=== PATIENT | female | born 2000 | race Caucasian/White ===

== ENCOUNTER 2020-08-11 09:49 | Outpatient (CLI) | payer OTHER, SELFPAY ==
[2020-08-11 09:59] LABS: Basophils Absolute Auto 0.04 K/mm3 (0.00-0.10); Basophils Percent Auto 0.5 % (0.0-1.0); Eosinophils Absolute Auto 0.11 K/mm3 (0.02-0.50); Eosinophils Percent Auto 1.4 % (1.0-6.0); Hematocrit 39.9 % (35.0-49.0); Hemoglobin 13.1 g/dL (12.0-15.0); Immature Granulocyte Absolute 0.04 K/mm3 (0.00-0.00); Immature Granulocyte Percent A 0.5 % (0.0-0.0); Lymphocytes Absolute Auto 1.62 K/mm3 (1.10-4.50); Lymphocytes Percent Auto 21.1 % (18.0-42.0); Mean Corpuscular HGB Conc 32.8 g/dL (32.0-36.0); Mean Corpuscular Volume 88.3 fL (78.0-102.0); Mean Platelet Volume 9.7 fl (9.2-11.8); Monocytes Absolute Auto 0.47 K/mm3 (0.10-0.90); Monocytes Percent Auto 6.1 % (2.0-11.0); Neutrophils Absolute Auto 5.4 K/mm3 (1.7-7.2); Neutrophils Percent Auto 70.4 % (50.0-70.0); Platelet Count Result 336 K/mm3 (150-420); Red Blood Count 4.52 M/mm3 (4.20-5.40); Red Cell Distribution Width 12.3 % (11.6-14.4); White Blood Count 7.7 K/mm3 (4.8-10.8)
[2020-08-11 11:15] LABS: Alanine Aminotransferase 22 U/L (14-59); Albumin Level 3.6 g/dL (3.4-5.0); Alkaline Phosphatase 72 U/L (46-116); Anion Gap 10 mmol/L (8-16); Aspartate Amino Transferase 11 U/L (15-37); Bilirubin,Total 0.1 mg/dL (0.00-1.00); Blood Urea Nitrogen 11 mg/dL (7-18); Calcium 9.1 mg/dL (8.5-10.1); Carbon Dioxide 27 mmol/L (21-32); Chloride 102 mmol/L (98-108); Estimated Glomerular Filt Rate > 60; Free T4 Free Thyroxine 0.93 ng/dL (0.76-1.46); Glucose 90 mg/dL (70-99); Osmolality Calculated 287 mOsm/kg (285-295); Potassium 4.5 mmol/L (3.5-5.1); Sodium 139 mmol/L (136-145); Thyroid Stimulating Hormone 1.05 uIU/mL (0.36-3.74); Total Protein 6.9 g/dL (6.4-8.2); Vitamin B12 283 pg/mL (193-986)
== END 2020-08-11 09:50 | disposition home or self-care (01) ==
PROVIDERS: PCP Nurse Practitioner Family; Visit Provider Nurse Practitioner Family
DX: R53.83 Other fatigue (principal); R63.5 Abnormal weight gain
CPT/HCPCS: 36415; 80053; 82607; 84439; 84443; 85025

== ENCOUNTER 2021-03-11 13:29 | Emergency (ER) | payer OTHER, SELFPAY ==
--- NOTE | ~2021-03-11 | XR_ITS ---
EXAMINATION: XR chest 2V EXAM DATE: 03/11/2021 16:07 INDICATION: Cough. TECHNIQUE: Frontal and lateral projections of the chest obtained and reviewed. Comparison is made to prior examination from 10/25/2017. FINDINGS: The lungs are clear. There are no pleural effusions. The cardiomediastinal silhouette is within normal limits. There is no pneumothorax suspected. The bones and soft tissues are unremarkab le. IMPRESSION: No acute cardiopulmonary findings. Reviewed, dictated and finalized at location A. NG ROOM HOST/HOSTESS
[2021-03-11 15:06] VITALS: BP 143/86; PULSE 81; RESP 16; TEMP 36.8; O2SAT 99
--- NOTE | 2021-03-11 15:53 | ED.GENADULT ---
HPI - General Adult General Chief complaint: Upper Respiratory Infection Stated complaint: nasal congestion,cough,sorethroat Source: patient Mode of arrival: ambulatory Limitations: no limitations History of Present Illness HPI narrative: Patient presents for evaluation of respiratory symptoms for the last 3 days. Symptoms include sore throat, nonproductive cough, shortness of breath, and diarrhea. She has had a low-grade fever with T-max 100.4. She denies any chills, nausea or vomiting. She has had COVID in the past. She also has received COVID vaccination and booster. However, one of her friends tested positive for COVID and they spent two days together this week. Related Data Home Medications Medication Instructions Recorded Confirmed norethindrone acetate 1.5 1 tablet PO DAILY 08/11/20 03/11/21 mg-ethinyl estradiol 30 mcg tablet Allergies Allergy/AdvReac Type Severity Reaction Status Date / Time No Known Allergies Allergy Verified 03/11/21 15:17 Review of Systems Review of Systems: CONSTITUTIONAL: Reports fever. Denies chills. EYES: Denies visual changes, redness, or discharge. ENT: Reports sore throat. Denies rhinorrhea, congestion, or otalgia. CARDIOVASCULAR: Denies chest pain, palpitations, or edema. RESPIRATORY: Reports nonproductive cough and SOB GASTROINTESTINAL: Reports diarrhea. Denies abdominal pain, nausea, vomiting, or diarrhea. GENITOURINARY: Denies dysuria or hematuria. SKIN: Denies rash or itching. MUSCULOSKELETAL: Reports body aches NEUROLOGIC: Denies headache, numbness, dizziness, or weakness. PSYCHIATRIC: Denies anxiety or depression. [facility] Past Medical History Medical History (Updated 03/11/21 @ 16:33 by MARY Mariscal, ) No pertinent past medical history Surgical History Surgical History Hx of tonsillectomy Family History Family History Father Hyperlipemia Grandparent Hyperlipemia Social History Social History Smoking status: Never smoker Alcohol intake: current Alcohol use details: occasionally Substance use: never Gender identity (if verbalized by the patient): Female Exam Narrative: GENERAL: Well-appearing, well-nourished, and in no acute distress. HEAD: Normocephalic, atraumatic. EYES: PERRLA and EOMI. ENT: Nares clear, no rhinorrhea or epistaxis. Mucous membranes moist. Oropharynx without tonsillar hypertrophy exudate or other lesions. Bilateral TMs pearly velasco nonbulging NECK: Supple. No adenopathy or masses. No carotid bruits or JVD CHEST: Clear to auscultation. No respiratory distress. No wheezes rales or rhonchi HEART: Regular rate and rhythm. No murmur heard. Normal peripheral pulses. ABDOMEN: Soft, nontender, nondistended, normal active bowel sounds. EXTREMITIES: Normal range of motion. No edema. SKIN: Warm, dry, no rash. NEURO: No focal deficits. Alert and oriented x3. PSYCH: Normal mood and affect. Course Course Emergency Course: This is a 21-year-old female that presented with respiratory symptoms. Strep, influenza, Covid were all negative. Chest x-ray negative. Likely acute viral syndrome. I did advise that she quarantine and repeat her Covid test in a few days. She is nontoxic-appearing. Vital signs stable. Advise follow-up outpatient for further evaluation and treatment return for worsening symptoms. Patient agreed with plan of care. Level of Care: Express Care Visit Vital Signs Vital signs: Vital Signs Temperature 36.8 C 03/11/21 15:06 Pulse Rate 81 03/11/21 15:06 Respiratory Rate 16 03/11/21 15:06 Blood Pressure 143/86 H 03/11/21 15:06 Pulse Oximetry 99 03/11/21 15:06 Temperature 36.8 C 03/11/21 15:06 Pulse Rate 81 03/11/21 15:06 Respiratory Rate 16 03/11/21 15:06 Blood Pressure 143/86 H 03/11/21
== END 2021-03-11 16:35 | disposition home or self-care (01) ==
PROVIDERS: Emergency Provider Nurse Practitioner
DX: B34.9 Viral infection, unspecified (principal); Z20.822 Contact with and (suspected) exposure to COVID-19
CPT/HCPCS: 71046; 87081; 87426; 87804; 87880; 99213; C9803; G0463

== ENCOUNTER 2021-03-13 08:24 | Outpatient (CLI) | payer OTHER, SELFPAY ==
[2021-03-13 10:59] LABS: SARS-CoV-2 RNA PCR Negative (Negative)
== END 2021-03-13 08:25 | disposition home or self-care (01) ==
LOC: CHSLAB 08:27
PROVIDERS: PCP Nurse Practitioner Family; Visit Provider Family Medicine
DX: R50.9 Fever, unspecified (principal); Z20.822 Contact with and (suspected) exposure to COVID-19
CPT/HCPCS: C9803; U0003; U0005

== ENCOUNTER 2021-05-12 10:12 | Outpatient (CLI) | payer OTHER, SELFPAY ==
[2021-05-12 16:00] LABS: SARS-CoV-2 RNA PCR Negative (Negative)
== END 2021-05-12 10:13 | disposition home or self-care (01) ==
LOC: CHSLAB 10:14
PROVIDERS: PCP Nurse Practitioner Family; Visit Provider Nurse Practitioner Family
DX: Z20.822 Contact with and (suspected) exposure to COVID-19 (principal)
CPT/HCPCS: C9803; U0003; U0005

== ENCOUNTER 2021-07-27 14:03 | Outpatient (CLI) | payer OTHER, SELFPAY ==
[2021-07-30 14:32] LABS: TB Skin Test Erythema 0 mm; TB Skin Test Induration 0 mm (0-10); TB Skin Test Interpretation Negative (Negative); TB Skin Test Site Left Arm
== END 2021-07-27 14:04 | disposition home or self-care (01) ==
LOC: CHSLAB 14:05
PROVIDERS: PCP Nurse Practitioner Family; Visit Provider Nurse Practitioner Family
DX: Z02.1 Encounter for pre-employment examination (principal)
CPT/HCPCS: 36415; 86580

== ENCOUNTER 2021-09-06 12:51 | Outpatient (CLI) | payer OTHER, SELFPAY ==
[2021-09-06 13:25] LABS: Amphetamine Screen Urine Negative (Negative); Barbiturate Screen Urine Negative (Negative); Benzodiazepines Screen Urine Negative (Negative); Cannabinoid Screen Urine Negative (Negative); Cocaine Screen Urine Negative (Negative); Methadone Screen Urine Negative (Negative); Opiate Screen Urine Negative (Negative); Phencyclidine Screen Urine Negative (Negative)
== END 2021-09-06 12:52 | disposition home or self-care (01) ==
LOC: CHSLAB 12:53
PROVIDERS: PCP Nurse Practitioner Family; Visit Provider Nurse Practitioner Family
DX: Z02.1 Encounter for pre-employment examination (principal)
CPT/HCPCS: 80307

== ENCOUNTER → 2021-10-16 10:35 | Outpatient (CLI) | payer OTHER, SELFPAY ==
--- NOTE | ~2021-10-16 | CT_ITS ---
EXAMINATION: CT sinus wo con DATE: 10/16/2021 10:47 INDICATION: Chronic sinusitis TECHNIQUE: Computed tomography (CT) of the paranasal sinuses was performed without contrast. Iterativ e reconstruction technique was employed. Exam dose: 266.74 mGy-cm total exam DLP. COMPARISON: None FINDINGS: The nasal septum is essentially midline. Interlamellar cell of right middle nasal turbinate. The nasal turbinates are moderately prominent but symmetric in size. There is mild to moderate nodular mucoperiosteal thickening along the lower portion of the maxillary sinuses. The paranasal sinuses are otherwise normally developed and aerated. The mastoid air cells are normally developed and aerated bilaterally. IMPRESSION: Intralamellar cell of right middle nasal turbinate Mild to moderate nodular mucoperiosteal thickening of the lower aspect of both maxillary sinuses; oth erwise patent paranasal sinuses, ostiomeatal units and mastoid air cells Reviewed, dictated and finalized at Location A. Reviewed, dictated and finalized at location B. IMPRESSION: Intralamellar cell of right middle nasal turbinate Mild to moderate nodular mucoperiosteal thickening of the lower aspect of both maxillary sinuses; otherwise patent paranasal sinuses, ostiomeatal units and ma stoid air cells
== END ==
PROVIDERS: PCP Nurse Practitioner Family; Visit Provider Allergy & Immunology
DX: J32.9 Chronic sinusitis, unspecified (principal)
CPT/HCPCS: 70486

== ENCOUNTER 2021-10-17 11:58 | Outpatient (CLI) | payer OTHER, SELFPAY ==
--- NOTE | 2021-10-17 12:08 | ECG_ITS ---
Measurements Intervals [place] Rate: 63 P: 17 CT: 156 QRS: 26 QRSD: 114 T: 16 QT: 430 QTc: 442 Interpretive Statements SINUS RHYTHM WITH SINUS ARRHYTHMIA INCOMPLETE RIGHT BUNDLE BRANCH BLOCK [90+ ms QRS DURATION, TERMINAL R IN V1/V2, 40+ ms S IN I/aVL/V4/V5/V6] POOR R-WAVE PROGRESSION POSSIBLE INFERIOR MYOCARDIAL INFARCTION , PROBABLY OLD [30 ms Q WAVE IN II/aVF] NO PREVIOUS ECG AVAILABLE FOR COMPARISON Electronically Signed On 10-17-2021 16:51:37 CDT by Gloria Bryant M.D.
== END 2021-10-17 11:59 | disposition home or self-care (01) ==
PROVIDERS: PCP Nurse Practitioner Family; Visit Provider Nurse Practitioner Family
DX: R00.2 Palpitations (principal)
CPT/HCPCS: 93005

== ENCOUNTER 2022-12-26 08:41 | Outpatient (CLI) | payer OTHER, SELFPAY ==
--- NOTE | 2023-01-16 07:40 | WPDHOMESLEEP ---
Sleep Study - Home Unattended Date of Study: 12/26/22 Ordering Provider: German Duarte DO Interpreting Provider: Yudith Strong MD Home Sleep Study Type: Watch PAT Height: 1.57 m Weight: 113.398 kg Body Mass Index: 45.7 Neck Circumference (inches): 16 Jackson: 10 Reason for Sleep Study Daytime hypersomnia Sleep History Patient is a 22-year-old female with history of acid reflux and recently elevated blood pressure readings who underwent a home sleep test for evaluation of daytime hypersomnia. She rarely awakens from sleep short of breath. She constantly awakens at night with heartburn, belching or coughing. She frequently snores and occasionally snores loudly enough that others complain. She constantly has trouble sleeping when she has a cold. She never suddenly wakes up gasping for breath during the night. She never has breathing problems at night. She never sweats excessively at night. She never notices her heart pounding or beating irregularly during the night. She occasionally falls asleep during the day. She never falls asleep while driving. She never experiences loss of muscle tone with strong emotion. She never has trouble at school or work because of sleepiness. She never feels paralyzed on waking or falling asleep. She occasionally experiences vivid dreams upon waking or falling asleep. She does not feel afraid of going to sleep. She occasionally has nightmares. She occasionally recalls her dreams. She occasionally has thoughts racing through her mind. She occasionally feels sad or depressed. She frequently feels anxiety or worry about things. She occasionally notices parts of her body jerk. She occasionally kicks during the night. She rarely feels crawling or aching feelings in her legs. She frequently feels leg pain at night. She occasionally grinds her teeth during sleep and never has morning jaw pain. She rarely feels bothered by pain during the day and is occasionally awakened by pain during the night. She occasionally wakes up feeling stiff in the morning. She frequently wakes up feeling sore and achy in the morning. She frequently wakes with pain in her neck, spine, or joints. Normal bedtime is between 9:30pm to 10pm on the weekdays and 11pm to 2am on the weekends, taking about 10 minutes to fall asleep. She typically gets about 8 to 10 hours of sleep per night. Her wake up time is between 3 to 5am on the weekdays and 6 to 7am on the weekends. She typically wakes up around 1 to 2 times per night, awake 10 minutes at most and she will go to the restroom, get a drink of water, and go back to bed. Habits: Never tobacco smoker. Drinks 0 to 2 caffeinated beverages per day. Social alcohol use on the weekends. No recreational substances. [facility] Past Medical History Medical History No pertinent past medical history Surgical History Surgical History Hx of tonsillectomy Family History Family History Father Hyperlipemia Grandparent Hyperlipemia Social History Social History Smoking status: Never smoker Alcohol intake: current Alcohol use details: occasionally Substance use: never Lack of Transportation: No Lack of Food: Never True Current Housing: I Have Housing Concerned About Future Housing: No Difficulty Paying Gas/Electric Bills: No Difficulty Paying for Meds: No Currently Unemployed: No Education: High School Diploma/GED Living arrangements: with roommate(s) Gender identity (if verbalized by the patient): Female Medications Home Medications Medication Instructions Recorded Confirmed Type benzonatate 100 mg capsule 200 mg PO BID-TID PRN cough #60 03/30/22 10/22/22 Rx caps drospirenone (contraceptive) 4 mg 1 tablet PO DAILY 11/23/22 History (28) ta
[2023-01-16 07:57] VITALS: BMI 45.7
== END 2022-12-27 11:05 | disposition home or self-care (01) ==
LOC: ANHCSM 08:43
PROVIDERS: PCP Nurse Practitioner Family; Visit Provider Family Medicine
DX: G47.10 Hypersomnia, unspecified (principal); R40.0 Somnolence
CPT/HCPCS: 95800

== ENCOUNTER 2023-01-29 14:32 | Outpatient (CLI) | payer OTHER, SELFPAY ==
--- NOTE | ~2023-01-29 | XR_ITS ---
EXAMINATION: XR chest 2V Exam Date/Time: 01/29/2023 14:50 CALENDAR CONTROL CLERK BLOOD BANK HISTORY: R76.11 - Nonspecific reaction to tuberculin skin test wit... Comparison: 01/16/2023. RESULT: Lines, tubes, and devices: None. Lungs and pleura: Clear. Cardiomediastinal silhouette: Stable. Other: No acute osseous or upper abdominal finding. IMPRESSION: No acute cardiopulmonary process. Reviewed, dictated and finalized at location K. NDAR CONTROL CLERK BLOOD BANK
[2023-02-02 12:02] LABS: NIL 0.03 IU/mL; Quantiferon TB Plus, 1T NEGATIVE (NEGATIVE); TB2-NIL <0.00 IU/mL
== END 2023-01-29 14:33 | disposition home or self-care (01) ==
LOC: CHSLAB 14:34
PROVIDERS: PCP Nurse Practitioner Family; Visit Provider Nurse Practitioner Family
DX: R76.11 Nonspecific reaction to tuberculin skin test without active tuberculosis (principal)
CPT/HCPCS: 36415; 71046; 86480

== ENCOUNTER 2023-03-09 04:43 | Emergency (ER) | payer OTHER, SELFPAY ==
[2023-03-09 04:43] VITALS: BP 169/116; PULSE 126; RESP 18; TEMP 36.1; O2SAT 97
--- NOTE | 2023-03-09 04:48 | ECG_ITS ---
Measurements Intervals [place] Rate: 104 P: 44 CA: 170 QRS: 13 QRSD: 106 T: 21 QT: 342 QTc: 450 Interpretive Statements SINUS TACHYCARDIA LOW QRS VOLTAGE IN PRECORDIAL LEADS [QRS DEFLECTION < 1.0 mV IN CHEST LEADS] INCOMPLETE RIGHT BUNDLE BRANCH BLOCK [90+ ms QRS DURATION, TERMINAL R IN V1/V2, 40+ ms S IN I/aVL/V4/V5/V6] ABNORMAL RHYTHM ECG COMPARED TO ECG 10/17/2021 12:18:38 SINUS TACHYCARDIA NOW PRESENT Electronically Signed On 03-10-2023 14:15:39 WATCH ELECTRICIAN by Marissa Odell M.D.
--- NOTE | 2023-03-09 04:55 | ED.GENADULT ---
HPI - General Adult General Chief complaint: Abdominal Pain Stated complaint: abdominal pain Time Seen by Provider: 03/09/23 04:53 History of Present Illness HPI narrative: Iva is a 23F with a PMH of GERD that presented to the ED with epigastric pain and burning that woke her up. It started yesterday morning and became worse throughout the day. She had a girls night last night and ate some pizza and had some drinks. She made herself vomit once but otherwise there is no vomiting. It was not relieved by her home hospital. There is no dyspnea, lightheadedness or diarrhea. Related Data Home Medications Medication Instructions Recorded Confirmed drospirenone (contraceptive) 4 mg 1 tablet PO DAILY 11/23/22 03/09/23 (28) tablet (Slynd) Allergies Allergy/AdvReac Type Severity Reaction Status Date / Time ciprofloxacin Allergy hives Verified 02/22/23 12:12 Review of Systems Review of Systems: All systems reviewed & are unremarkable except as noted in HPI and below PMFSH Past Medical History Medical History No pertinent past medical history Surgical History Surgical History Hx of tonsillectomy Family History Family History Father Hyperlipemia Grandparent Hyperlipemia Social History Social History (System 02/22/23 @ 12:[address]) Smoking status: Never smoker Alcohol intake: current Alcohol use details: occasionally Substance use: never Lack of Transportation: No Lack of Food: Never True Current Housing: I Have Housing Concerned About Future Housing: No Difficulty Paying Gas/Electric Bills: No Difficulty Paying for Meds: No Currently Unemployed: No Education: High School Diploma/GED Living arrangements: with roommate(s) Gender identity (if verbalized by the patient): Female Exam Const: General: cooperative, healthy appearing, comfortable, no acute distress, well developed, alert, awake and Physically active Orientation/consciousness: oriented to person, oriented to place and oriented to time HENMT: Head: normal to inspection, normocephalic and atraumatic Ears: hearing grossly normal bilaterally and external ears normal Face/Nose/Sinus: Normal external nose present Eyes: General: appearance normal, both eyes and all related structures Periorbital: periorbital findings normal Sclera: sclerae normal Pupils: Equal, round and reactive pupils present Neck: Neck: normal visual inspection Chest: Chest palpation & inspection: normal inspection of the chest Resp: Effort & Inspection: normal respiratory effort, able to speak in complete sentences and no respiratory distress Auscultation: clear to auscultation bilaterally Cardio: Jugular venous distension: no JVD Rate: regular rate Rhythm: regular rhythm GI: Inspection: normal to inspection GI Palp: Yes Soft to palpation Auscultation: normal bowel sounds Other: TTP in the epigastric region but no guarding or rebound tenderness Skin: General skin exam: normal color and no rashes or lesions noted Neuro: General: oriented to person, oriented to place and oriented to time Cranial nerves: Yes Equal, round and reactive pupils present Extrem: General: normal to inspection Course Course Emergency Course: Ordered GI cocktail and labs. EKG showed sinus tachycardia with a rate of 104, normal axis, no ST elevation/depression or ectopy Labs were largely unremarkable. Discussed how her symptoms are GERD vs biliary colic vs other. The pain was mostly relieved after the GI cocktail. Ultrasound is not available today. As she is feeling comfortable she is amenable to getting it done outpatient. I sent a message to her office to get it scheduled. Vital Signs Vital signs: Vital Signs Temperature 97 F L 03/09/23 04:43 Pulse Rate 126 H 03/09/23 0
[2023-03-09] MEDS: MAG HYDROX/ALUMINUM HYD/SIMETH 30 ML, PHENobarb/HYOSCY/ATROPINE/SCOP 32.4 MG, LIDOCAINE... PO (05:10)
[2023-03-09 05:41] LABS: Basophils Absolute Auto 0.07 K/mm3 (0.00-0.10); Basophils Percent Auto 0.8 % (0.0-1.0); Eosinophils Absolute Auto 0.14 K/mm3 (0.02-0.50); Eosinophils Percent Auto 1.6 % (1.0-6.0); Hemoglobin 12.7 g/dL (12.0-15.0); Immature Granulocyte Absolute 0.08 K/mm3 (0.00-0.00); Immature Granulocyte Percent A 0.9 % (0.0-0.0); Lymphocytes Absolute Auto 2.62 K/mm3 (1.10-4.50); Lymphocytes Percent Auto 29.5 % (18.0-42.0); Mean Corpuscular HGB Conc 32.6 g/dL (32.0-36.0); Mean Corpuscular Hemoglobin 29.1 pg (27.0-31.0); Mean Corpuscular Volume 89.4 fL (78.0-102.0); Mean Platelet Volume 9.8 fl (9.2-11.8); Monocytes Absolute Auto 0.44 K/mm3 (0.10-0.90); Monocytes Percent Auto 4.9 % (2.0-11.0); Neutrophils Absolute Auto 5.5 K/mm3 (1.7-7.2); Neutrophils Percent Auto 62.3 % (50.0-70.0); Platelet Count Result 396 K/mm3 (150-420); Red Blood Count 4.36 M/mm3 (4.20-5.40); Red Cell Distribution Width 12.8 % (11.6-14.4); White Blood Count 8.9 K/mm3 (4.8-10.8)
[2023-03-09 05:46] VITALS: BP 144/113; PULSE 78; RESP 18; O2SAT 98
[2023-03-09 06:03] LABS: Alanine Aminotransferase 56 U/L (14-59); Albumin Level 3.7 g/dL (3.4-5.0); Alkaline Phosphatase 100 U/L (46-116); Anion Gap 10 mmol/L (8-16); Aspartate Amino Transferase 27 U/L (15-37); Bilirubin,Total 0.2 mg/dL (0.00-1.00); Blood Urea Nitrogen 6 mg/dL (7-18); CRP 2.4 mg/dL (0.0-0.9); Calcium 8.8 mg/dL (8.5-10.1); Carbon Dioxide 28 mmol/L (21-32); Chloride 102 mmol/L (98-108); Estimated CRCL calculation 104 ml/min; Estimated Glomerular Filt Rate > 60; Glucose 149 mg/dL (70-99); Lipase 43 U/L (16-77); Osmolality Calculated 290 mOsm/kg (285-295); Potassium 3.8 mmol/L (3.5-5.1); Sodium 140 mmol/L (136-145); Total Protein 7.7 g/dL (6.4-8.2)
[2023-03-09 06:23] VITALS: BP 146/103; PULSE 87; RESP 20; O2SAT 99
== END 2023-03-09 06:29 | disposition home or self-care (01) ==
PROVIDERS: Emergency Provider Family Medicine; PCP Nurse Practitioner Family
DX: K21.9 Gastro-esophageal reflux disease without esophagitis (principal); R07.9 Chest pain, unspecified
CPT/HCPCS: 36415; 80053; 83690; 85025; 86140; 93005; 99283; A9270

== ENCOUNTER 2023-03-13 08:14 | Outpatient (CLI) | payer OTHER, SELFPAY ==
--- NOTE | ~2023-03-13 | US_ITS ---
Limited Abdominal Sonogram: Real-time sonographic imaging of the right upper quadrant was performed. Clinical History: Abdominal pain Findings: The liver appears echogenic, with no evidence of mass lesion or bile duct dilatation. Main portal vein demonstrates normal direction of flow. The gallbladder is well distended, and appears no rmal with no evidence of gallstone or wall thickening. The common bile duct measures 5 mm. The visua lized pancreas, aorta, and IVC are unremarkable. Impression: Diffuse fatty infiltration of the liver. Reviewed, dictated and finalized at location M. RAFT PARTS ASSEMBLER Impression: Diffuse fatty infiltration of the liver.
== END 2023-03-13 08:15 | disposition home or self-care (01) ==
LOC: CHSIMG 08:15
PROVIDERS: PCP Family Medicine; Visit Provider Family Medicine
DX: R10.11 Right upper quadrant pain (principal); K76.0 Fatty (change of) liver, not elsewhere classified
CPT/HCPCS: 76705

== ENCOUNTER 2023-09-13 15:21 | Outpatient (NON) | payer OTHER, SELFPAY ==
[2023-09-13 15:30] LABS: Appearance Urine Clear (Clear); Bilirubin Urine Negative (Negative); Blood Urine Negative (Negative); Color Urine Light Yellow (Yellow); Glucose Urine UA Negative (Negative); Ketones Urine Negative (Negative); Leukocyte Esterase Ur Negative (Negative); Nitrate Urine Negative (Negative); Protein Urine Negative (Negative); Specific Grav Ur <= 1.005 (1.010-1.020); Urobilinogen Urine 0.2 mg/dL (0.2-1.0); pH Urine 6.5 (5.0-8.0)
[2023-09-13 15:31] LABS: Add Urine Microscopic? NO
[2023-09-13 18:37] LABS: Creatinine Urine 38.98 mg/dL (40-278); MALB Creatinine Ratio 33.3 mg/g (0-30); Microalbumin Urine Random < 13.0 mg/L
== END 2023-09-13 15:22 | disposition home or self-care (01) ==
PROVIDERS: Visit Provider Nurse Practitioner Family
DX: Z02.1 Encounter for pre-employment examination (principal)
CPT/HCPCS: 81003; 82043

== ENCOUNTER 2024-02-01 08:50 | Outpatient (CLI) | payer BC, OTHER, SELFPAY ==
[2024-02-01 09:14] LABS: Hemoglobin A1C 5.3 % (<5.7)
[2024-02-01 09:48] LABS: Free T4 Free Thyroxine 0.84 ng/dL (0.76-1.46); Thyroid Stimulating Hormone 1.25 uIU/mL (0.36-3.74)
[2024-02-03 21:18] LABS: Insulin Level Total 22.9 uIU/mL
[2024-02-04 06:12] LABS: DHEA-Sulfate 118 mcg/dL (14-349); Prolactin 9.5 ng/mL
== END 2024-02-01 08:51 | disposition home or self-care (01) ==
LOC: CHSLAB 08:52
PROVIDERS: PCP Nurse Practitioner Family
DX: N92.6 Irregular menstruation, unspecified (principal)
CPT/HCPCS: 36415; 82627; 83036; 83498; 83525; 84146; 84402; 84403; 84439; 84443

== ENCOUNTER 2024-02-05 10:02 | Outpatient (CLI) | payer BC, OTHER, SELFPAY ==
--- NOTE | ~2024-02-05 | US_ITS ---
US pelvic complete w TV Ordering provider: Elisa Reis CNM History: . pelvic and perineal pain . Comparison: None. Technique: Transabdominal and endovaginal ultrasound of the pelvis (Doppler ultrasound interrogation techniques used as needed for this exam.) FINDINGS: CERVIX: Normal. UTERUS: Measures 6.6x 3.4x 3.4 cm in length which is within normal limits and is anteverted. No myom etrial masses. ENDOMETRIUM: Normal in thickness measuring 10.3 mm. No endometrial masses, cysts or fluid. CUL DE SAC: Minimal free fluid. RIGHT OVARY: Normal in size measuring 4x 2.8x 2.8 cm. Normal echotexture. Doppler vascular flow prese nt. Multiple small cysts less than 1 cm. LEFT OVARY: Normal in size measuring 4.1x 3x 2.8 cm. Normal echotexture. Doppler vascular flow presen t. Multiple small cysts less than 1 cm. ADNEXA: Normal. No mass. IMPRESSION: Bilateral polycystic ovaries. Clinical correlation advised. Slightly thickened endometrium. Correlati on with menstrual stage is advised. Trace of fluid in the pelvis. Otherwise, normal pelvic ultrasound . Reviewed, dictated and finalized at location A. L FURNITURE POLISHER IMPRESSION: Bilateral polycystic ovaries. Clinical correlation advised. Slightly thickened endometrium. Correlation with menstrual stage is advised. Trace of fluid in the pelvis. Otherwise, normal pelvic ultrasound.
== END 2024-02-05 10:03 | disposition home or self-care (01) ==
LOC: CHSIMG 10:05
PROVIDERS: PCP Nurse Practitioner Family; Visit Provider Advanced Practice Midwife
DX: R10.2 Pelvic and perineal pain (principal); E28.2 Polycystic ovarian syndrome
CPT/HCPCS: 76830; 76856

== ENCOUNTER 2024-06-02 14:00 | Outpatient (CLI) | payer BC, OTHER, SELFPAY ==
--- NOTE | ~2024-06-02 | XR_ITS ---
XR chest 2V Ordering provider: Preet Osorio APRN History: 24 years Female with . R06.2 - Wheezing and sob x 1 day . Comparison: January 29, 2023. FINDINGS: MEDIASTINUM: The cardiac silhouette is not enlarged. LUNGS: No infiltrates, effusions or pneumothorax. OTHER: No free air under the diaphragm. IMPRESSION: No acute cardiopulmonary pathology. Reviewed, dictated and finalized at location A.
--- OUTSIDE RECORDS SUMMARY | 2024-06-02 16:23 | XMS_ITS | Clinical Summary ---
Author Organization [address] Address [facility] [place] [address] Care Team Providers Care Hospital Technician Name Role Phone No, Physician Primary Care Provider [phone] Allergies Active Allergy Reactions Criticality Noted Date Comments Ciprofloxacin Hives Medium 11/08/2021 Medications norethindrone-e .estradioL-iron (03/30) 1 mg-20 mcg (21)/75 mg (7) per tablet 03/30 (28) 1 mg-20 mcg (21)/75 mg (7) tablet TAKE 1 TABLET BY MOUTH EVERY DAY Active omeprazole (PriLOSEC) 40 mg capsule Take 1 capsule (40 mg total) by mouth 2 (two) times a day 120 capsule 11/08/2021 Active Active Problems Problem Noted Date Diagnosed Date Cough 11/08/2021 Assessment & Plan (11/08/2021 12:05 PM CDT): Her exam is pretty normal including her throat although there is little bit of redness of the posterior commissure. I talked with her about the cough and I suspect reflux is the source. Laryngopharyngeal reflux 11/08/2021 Assessment & Plan (11/08/2021 12:05 PM CDT): I think that this is what is causing most of her symptoms including the cough and postnasal drainage. She has a CT scan which really shows minimal findings of bilateral maxillary sinusitis. I do not feel that that is causing this. Allergy testing was also negative. We discussed laryngopharyngeal reflux disease. It could be causing these symptoms. It can be improved through dietary management and we talked about various dietary changes to consider. Also discussed aggressive treatment through twice a day proton pump inhibitors. I also provided some literature regarding this type of reflux and this included instructions on dietary management. We also discussed the potential long-term side effects of proton pump inhibitors including liver and kidney disease and increased risk of dementia. I do not intend to continue treatment with this medication indefinitely unless there was no other way to get the symptoms under control and the patient wishes to continue taking them. She would like to go ahead and pursue that. I am going to prescribe omeprazole 40 mg twice a day. Plan is for a follow-up in about 6 weeks. Surgical History Surgery Date Site/Laterality Comments TONSILLECTOMY WISDOM TOOTH EXTRACTION Medical History Medical History Date Comments Ear problems Family History Medical History Relation Name Comments No Known Problems Father No Known Problems Mother Relation Name Status Comments Father Mother Social History Tobacco Use Types Packs/Day Years Used Date Smoking Tobacco: Never Smokeless Tobacco: Never Tobacco Cessation:Counseling Given: Not Answered Personal Safety Answer Date Recorded Getting School Help Needed Not on file 05/25 Comments Unknown Sex and Gender Information Value Date Recorded Sex Assigned at Not on file Legal Sex Female 6:40 AM FRONT END ENGINEER Gender Identity Not on file Sexual Orientation Not on file Obstetrics History Last Filed Vital Signs Vital Sign Reading Time Taken Comments Blood Pressure 124/63 01/27/2018 9:24 AM FRONT END ENGINEER Pulse 94 01/27/2018 9:24 AM FRONT END ENGINEER Temperature 36.3 C (97.3 F) 01/27/2018 9:24 AM FRONT END ENGINEER Respiratory Rate 18 11/08/2021 11:14 AM CDT Oxygen Saturation 95% 01/27/2018 9:24 AM FRONT END ENGINEER Inhaled Oxygen Concentration - - Weight 95.3 kg (210 lb) 11/08/2021 11:14 AM CDT Height 157.5 cm (5' 2 ) 11/08/2021 11:14 AM CDT Body Mass Index 38.41 11/08/2021 11:14 AM CDT Plan of Treatment Health Maintenance Due Date Last Done Comments Cervical Cancer Screening 2000 Depression Screening 2000 Hepatitis C Screening 2000 Regular Well Visit/Exam 18-64 02/11/2018 DTaP/Tdap/Td Vaccine (6 - Td or Tdap) 10/09/2021 10/10/2011, 06/13/2009, 04/24/2005, Additional history exists Covid-19 Vaccine ( season) 2023 03/01/2021, 06/07/2020, 05/17/2020 Influenza Vaccine (#1) 2023 4, 12/22/2012, 11/27/2010, Additional history exists Hepatitis B Screening Completed 02/11/2001 , 2000, 2000 Varicella Vaccines Completed 02/24/2010, 04/24/2005 HPV Vaccines Completed 10/23/2013, 10/09, 10/10/2011 Pneumococcal vaccine <65 Aged Out No longer eligible based on patient's age to complete this topic Insurance [address] [address] [id number] Customer Support HMO/PPO Address: [facility] [id number] [place] [id number] [facility] [id number] Care Teams Hospital Technician Relationship Specialty Start Date End Date No, Physician PCP - General 10/26/21
--- OUTSIDE RECORDS SUMMARY | 2024-06-02 16:23 | XMS_ITS ---
Author Organization Unknown Medications Medication Instructions Effective Dates (start - stop) Status {28 (norethindrone 0.35 MG O ral Tablet) } Pack - Completed 0.5 ML semaglutide 1 MG/ML Auto-Injector [Wegovy] - Completed 0.5 ML semaglutide 1 MG/ML Auto-Injector [MegaPathvy] - Completed omeprazole 40 MG Delayed Rel ease Oral Capsule - Completed dexamethasone 1 MG/ML / neom ycin 3.5 MG/ML / polymyxin B [id number] UNT/ML Ophthalmic Suspension - Complete d {21 (ethinyl estradiol 0.02 MG / norethindrone acetate 1 MG Oral Tablet) / 7 (ferrous fumarate 75 MG Oral Tablet) } Pack - Completed 0.5 ML semaglutide 0.5 MG/ML Auto-Injector [Dacos Softwaregovy] - Completed {21 (ethinyl estradiol 0.02 MG / norethindrone acetate 1 MG Oral Tablet) / 7 (ferrous fumarate 75 MG Oral Tablet) } Pack - Completed meclizine hydrochloride 25 M G Oral Tablet - Completed {28 (norethindrone 0.35 MG O ral Tablet) } Pack - Completed Patient Care team information Name Category Status Period Participants - - Proposed period not known -
--- OUTSIDE RECORDS SUMMARY | 2024-06-02 16:23 | XMS_ITS | Clinical Summary ---
Author Organization [facility] Address [address] [place] [address] Care Team Providers Care Hydroponics Worker Name Role Phone Rodríguez Monroy MD Primary Care Provider Source Comments [facility],non-owned Affiliates and Associated Physician Practices is amultiple site organization consisting of ambulatory clinics and hospital sitesin [place], [place], [place] and [place]. This disclosure is being madepursuant to the Care Everywhere program and may not contain all information available regarding this patient. Last updated 17.[facility] Allergies No known active allergies Medications * Be aware that medications may not be up to date on this document. Alwaysverify current medications with the patient. Medication Sig Dispensed Refills Start Date End Date Status hyoscyamine 0.125 MG tablet Take 0.125 mg by mouth every 4 hours as needed for Spasms. Active multivitamin daily (THERAGRAN) tablet Take 1 Tab by mouth daily with food. Active Active Problems Problem Noted Date Diagnosed Date Abdominal pain, RUQ (right upper quadrant) 07/17 Family History Medical History Relation Name Comments Stomach ulcers Mother stomach ulcer in college Cholelithiasis Paternal Grandmother Relation Name Status Comments Mother Paternal Grandmother Social History Tobacco Use Types Packs/Day Years Used Date Smoking Tobacco: Never Smokeless Tobacco: Never Alcohol Use Standard Drinks/Week Comments No 0 (1 standard drink = 0.6 oz pur e alcohol) Sex and Gender Information Value Date Recorded Sex Assigned at Not on file Gender Identity Not on file Sexual Orientation Not on file Last Filed Vital Signs Vital Sign Reading Time Taken Comments Blood Pressure 91/70 01/05/2014 10:30 AM CDT Pulse 66 01/05/2014 10:45 AM CDT Temperature 36.7 C (98.1 F) 01/05/2014 10:25 AM CDT Respiratory Rate 15 01/05/2014 10:45 AM CDT Oxygen Saturation 98% 01/05/2014 10:45 AM CDT Inhaled Oxygen Concentration - - Weight 73.1 kg (161 lb 1.6 oz) 01/05/2014 9:29 A M CDT Height 160 cm (5' 2.99 ) 01/05/2014 9:29 AM CDT Body Mass Index 28.54 01/05/2014 9:29 AM CDT Plan of Treatment Health Maintenance Due Date Last Done Comments PAP SMEAR 2000 HIV SCREENING 02/11/2015 HPV VACCINE (1 - 3-dose series) 02/11/2015 CHLAMYDIA/GONORRHEA SCREENING 2016 HEPATITIS C SCREENING 02/07/2018 DTAP/TDAP/TD VACCINES (1 - Tdap) 02/11/2019 HEPATITIS B VACCINE (1 of 3 - 19+ 3-dose series) 02/11/2019 COVID-19 VACCINE (1 - 2023-2 5 season) 2023 INFLUENZA VACCINE (#1) 2023 DEPRESSION SCREENING 03/11/2024 ZOSTER VACCINE (1 of 2) 02/11/2050 HIB VACCINE Aged Out No longer eligi ble based on patient's age to complete this topic MENINGOCOCCAL (Group B) VACC INE SHARED DECISION-MAKING Aged Out No longer eligibl e based on patient's age to complete this topic MENINGOCOCCAL GROUPS A/C/Y/W VACCINE Aged Out No longer eligible b ased on patient's age to complete this topic PNEUMOCOCCAL VACCINE Aged Out No long er eligible based on patient's age to complete this topic Care Teams Hydroponics Worker Relationship Specialty Start Date End Date Rodríguez Monroy MD [address] [place], [place] [id number] PCP - General Pediatrics 06/17/13
--- OUTSIDE RECORDS SUMMARY | 2024-06-02 16:23 | XMS_ITS | Referral Summary ---
Author Organization [place] [id number] Address [facility] [place] [address] Care Team Providers Care Cardiac Tech Name Role Phone No, Physician Primary Care Provider [phone] Allergies Active Allergy Reactions Criticality Noted Date [...] for a follow-up in about 6 weeks. Social History Tobacco Use Types Packs/Day Years Used Date Smoking Tobacco: Never Smokeless Tobacco: Never Tobacco Cessation:Counseling Given: Not Answered Personal Safety Answer Date Recorded Getting School Help Needed Not on file 05/25 Comments Unknown Sex and Gender Information Value Date Recorded Sex Assigned at Not on file Legal Sex Female 6:40 AM FIELD ACCOUNT MANAGER Gender Identity Not on file Sexual Orientation Not on file Last Filed Vital Signs Vital Sign Reading Time Taken Comments Blood Pressure 124/63 01/27/2018 9:24 AM FIELD ACCOUNT MANAGER Pulse 94 01/27/2018 9:24 AM FIELD ACCOUNT MANAGER Temperature 36.3 C (97.3 F) 01/27/2018 9:24 AM FIELD ACCOUNT MANAGER Respiratory Rate 18 11/08/2021 11:14 AM CDT Oxygen Saturation 95% 01/27/2018 9:24 AM FIELD ACCOUNT MANAGER Inhaled Oxygen Concentration - - Weight 95.3 kg (210 lb) 11/08/2021 11:14 AM CDT Height 157.5 cm (5' 2 ) 11/08/2021 11:14 AM CDT Body Mass Index 38.41 11/08/2021 11:14 AM CDT Plan of Treatment Not on file Insurance [facility] [id number] [address] [place] [id number] Member Subscriber Plan / Payer (Ef fective 2020-Present) Name:Iva Long Member ID:[id number] Relation to Subscriber:Child Name:JESSICA LONG Subscriber ID:[id number] Date of :1975 (Home) Address: [address] [place] [address] Payer ID:[id number] Type:[employer] HMO/PPO Address: [address] [place] [id number] Care Teams Cardiac Tech Relationship Specialty Start Date End Date No, Physician PCP - General 10/26/21
== END 2024-06-02 14:01 | disposition home or self-care (01) ==
LOC: CHSIMG 14:01
PROVIDERS: PCP Nurse Practitioner Family; Visit Provider Nurse Practitioner Family
DX: R06.2 Wheezing (principal)
CPT/HCPCS: 71046